=== PATIENT | male | born 1975 | race Caucasian/White ===

== ENCOUNTER 2016-07-15 14:36 | Emergency (ER) | payer SELFPAY ==
[~2016-07-15] VITALS: Ht 175.3 cm; Wt 90.7 kg
[~2016-07-15 14:36] MED LIST: OMEP40CA6 PO
[2016-07-15 15:45] VITALS: BP 131/82
[2016-07-15] MEDS ORDERED: SILVER SULF. CRM 1%, 50GM ONE (16:10)
[2016-07-15] MEDS ORDERED: SILVER SULF. CRM 1% , 25GM TP ONE (16:30)
== END 2016-07-15 16:36 | disposition home or self-care (01) ==
LOC: ED 16:30
DX: S80.12XA Contusion of left lower leg, initial encounter (principal); S80.11XA Contusion of right lower leg, initial encounter; S90.01XA Contusion of right ankle, initial encounter; S90.31XA Contusion of right foot, initial encounter; K21.9 Gastro-esophageal reflux disease without esophagitis; V09.9XXA Pedestrian injured in unspecified transport accident, initial encounter; Y93.01 Activity, walking, marching and hiking; Y92.89 Other specified places as the place of occurrence of the external cause; Y99.8 Other external cause status
CPT/HCPCS: 99284

== ENCOUNTER 2017-10-18 19:39 | Emergency (ER) | payer BC ==
[~2017-10-18] VITALS: Ht 175.3 cm; Wt 99.8 kg
[2017-10-18] MEDS ORDERED: OMEP10CA4 PO (19:46)
[2017-10-18 21:21] VITALS: BP 124/74
== END 2017-10-18 21:23 | disposition home or self-care (01) ==
LOC: ED 20:30
DX: F41.1 Generalized anxiety disorder (principal)
CPT/HCPCS: 99284

== ENCOUNTER 2018-08-14 22:15 | Emergency (ER) | payer BC ==
[~2018-08-14] VITALS: Ht 172.7 cm; Wt 85.0 kg
[~2018-08-14 22:15] MED LIST changes: +OMEP10CA4 PO
[2018-08-14 22:16] VITALS: BP 175/110
--- NOTE | 2018-08-14 22:29 | NUR ---
PT IN RM 36
--- NOTE | 2018-08-14 22:41 | NUR ---
PT ASKED TO UNDRESS AND INSTEAD ELOPED OUT AMBULANCE BAY, SECURITY CALLED AND [facility] NOTIFIED.
== END 2018-08-14 23:04 | disposition left against medical advice (07) ==
LOC: ED 22:27
DX: R45.851 Suicidal ideations (principal); Z53.21 Procedure and treatment not carried out due to patient leaving prior to being seen by health care provider

== ENCOUNTER 2018-10-03 23:44 | Emergency (ER) | payer BC ==
[~2018-10-03] VITALS: Ht 172.7 cm; Wt 92.0 kg
[2018-10-04 01:05] VITALS: BP 125/75
== END 2018-10-04 03:43 | disposition home or self-care (01) ==
LOC: ED 10-04 01:26
DX: S02.2XXA Fracture of nasal bones, initial encounter for closed fracture (principal); S01.81XA Laceration without foreign body of other part of head, initial encounter; K21.9 Gastro-esophageal reflux disease without esophagitis; Y04.8XXA Assault by other bodily force, initial encounter; Y93.89 Activity, other specified; Y92.89 Other specified places as the place of occurrence of the external cause; Y99.8 Other external cause status
CPT/HCPCS: 12051; 29505; 36415; 70450; 70486; 71045; 72125; 73110; 73130; 73564; 80048; 82040; 85025; 90471; 90715; 99284; J3490; Q0162